=== PATIENT | female | born 1960 | race Caucasian/White ===

== ENCOUNTER 2017-03-08 09:15 | Emergency (ER) | payer OTHER ==
[~2017-03-08] VITALS: Ht 162.6 cm; Wt 106.6 kg
[~2017-03-08 09:15] MED LIST: CLON.1 PO; CLON.5 PO; LISI20 PO; METF500 PO; OMEP20ER PO; TRAZ50 PO
[2017-03-08] MEDS ORDERED: IBUP800 PO (12:04)
[2017-03-08] MEDS ORDERED: Prednisone20 MG PO (12:04)
[2017-03-08] MEDS ORDERED: Percocet 5-3251 EACH PO (12:04)
[2017-03-08] MEDS ORDERED: CYCL10 PO (12:04)
== END 2017-03-08 12:30 | disposition home or self-care (01) ==
LOC: ER 09:15
DX: M54.41 Lumbago with sciatica, right side (principal); I10 Essential (primary) hypertension; R73.03 Prediabetes; Z88.2 Allergy status to sulfonamides; Z88.5 Allergy status to narcotic agent; Z91.018 Allergy to other foods; Z79.899 Other long term (current) drug therapy; Z79.84 Long term (current) use of oral hypoglycemic drugs
CPT/HCPCS: 96372; 99284; J1170; J1885; J3360

== ENCOUNTER → 2018-09-03 | Outpatient (CLI) | payer OTHER ==
[~2018-09-03] MED LIST changes: +ACET500 PO; +CYCL10 PO; +FERSU300 PO; +IBUP400 PO; +IBUP600 PO; +IBUP800 PO; +MAGNESIUM PO; +OMEPRAZOLE20 MG PO; +OXYC10TA19 PO; +PRAM.125 PO; +Percocet 5-3251 EACH PO; +Prednisone20 MG PO
[2018-09-05 15:07] LABS: HPV 16 Negative (Negative); HPV 18 Negative (Negative); HPV OTHER HR TYPES Negative (Negative)
== END | disposition home or self-care (01) ==
LOC: LAB 16:56 → LAB SHORT 16:56
PROVIDERS: Internal Medicine
DX: Z12.4 Encounter for screening for malignant neoplasm of cervix (principal)
CPT/HCPCS: 87624; G0145

== ENCOUNTER 2018-11-13 06:10 | Day surgery (SDC) | payer OTHER ==
[~2018-11-13] VITALS: Ht 162.6 cm; Wt 96.9 kg
[~2018-11-13 06:10] MED LIST changes: -IBUP400 PO; -OXYC10TA19 PO
--- NOTE | 2018-11-13 06:53 | NUR ---
PT ADMITTED TO [facility]. AGREES WITH PLANNED SURGERY. LUNG SOUNDS CLEAR. NOZIN TO NARE BILATERALLY.
--- NOTE | 2018-11-13 11:47 | NUR ---
PATIENT STATES SHE IS BEGINNING TO FEEL LLE, 'BUT IT DOESN'T HURT.' DISCUSSED PAIN MANAGEMENT WITH PATIENT. TAKING PO W/O C/O.
--- NOTE | 2018-11-13 19:10 | NUR ---
PATIENT STATES PAIN CONTROLLED WITH PO PAIN MEDS. CIRC CHECKS TO [facility] WNL. DRESSING D&I. AMBULATED WITH PT TODAY. TOLERATING PO. VOIDING. NO C/O OR CHANGES AT THIS TIME. VISITORS IN TO SEE.
[2018-11-14 05:14] LABS: BASOPHILS ABSOLUTE AUTO 0.02 K/mm3 (0.00-0.23); BASOPHILS PERCENT AUTO 0 % (0-2); EOSINOPHILS ABSOLUTE AUTO 0.01 K/mm3 (0.00-0.68); EOSINOPHILS PERCENT AUTO 0 % (0-6); Hematocrit 29.8 % (33.0-51.0); Hemoglobin 9.8 g/dL (11.5-16.0); IMMATURE GRAN ABSOLUTE AUTO 0.06 K/mm3 (0.00-0.10); IMMATURE GRAN PERCENT AUTO 0 % (0-1); LYMPHOCYTES ABSOLUTE AUTO 1.16 K/mm3 (0.84-5.20); LYMPHOCYTES PERCENT AUTO 8 % (21-46); MONOCYTES ABSOLUTE AUTO 1.12 K/mm3 (0.16-1.47); MONOCYTES PERCENT AUTO 8 % (4-13); Mean Corpuscular HGB 30.1 pg (26.0-34.0); Mean Corpuscular HGB Conc 32.9 g/dL (31.5-36.5); Mean Corpuscular Volume 91 fL (80-100); Mean Platelet Volume 9.6 fL (9.1-12.4); NEUTROPHILS ABSOLUTE AUTO 12.25 K/mm3 (1.96-9.15); NEUTROPHILS PERCENT AUTO 84 % (41-73); Platelet Count 296 K/mm3 (150-400); RDW Standard Deviation 40.2 fL (35.1-46.3); Red Blood Cell Count 3.26 M/mm3 (3.80-5.20); White Blood Cell Count 14.62 K/mm3 (4.00-11.30)
[2018-11-14 05:45] LABS: Anion Gap 7 mmol/L (6-16); Blood Urea Nitrogen 22 mg/dL (8-24); CO2, Blood 25 mmol/L (21-32); Calcium, Blood 8.8 mg/dL (8.5-10.1); Chloride, Blood 101 mmol/L (98-108); Creatinine, Blood 0.88 mg/dL (0.40-1.00); Glomerular Filtration Rate >60 (60-); Glucose, Blood 144 mg/dL (70-99); Potassium, Blood 4.4 mmol/L (3.5-5.5); Sodium, Blood 133 mmol/L (136-145)
--- NOTE | 2018-11-14 06:35 | NUR ---
SHIFT SUMMARY RESTED WELL, PAIN MANAGED WITH PRN AND SCHEDULED MEDS. AMBULATED IN HALLWAY BEFORE BED, TOLERATED WELL. DENIES FURTHER NEDS OR WANTS AT THIS TIME. SAFETY MEASURES IN PLACE. WILL GIVE HAND OFF TO ONCOMING SHIFT USING SBAR.
== END 2018-11-14 14:05 | disposition home or self-care (01) ==
LOC: ORSCMMR 06:10 → ORD 07:30 → ORSCMMR 07:30 → ORD 09:00 → SURS 10:28 → ORSCMMR 11-14 14:05
PROVIDERS: Orthopaedic Surgery
PROC: 0SRD0JA Replacement of Left Knee Joint with Synthetic Substitute, Uncemented, Open Approach (ICD-10-PCS; principal; 2018-11-13 07:30)
DX: M17.12 Unilateral primary osteoarthritis, left knee (principal); I10 Essential (primary) hypertension; E11.9 Type 2 diabetes mellitus without complications; J45.909 Unspecified asthma, uncomplicated; K21.9 Gastro-esophageal reflux disease without esophagitis; E66.01 Morbid (severe) obesity due to excess calories; Z68.36 Body mass index [BMI] 36.0-36.9, adult; Z79.84 Long term (current) use of oral hypoglycemic drugs; Z79.899 Other long term (current) drug therapy
CPT/HCPCS: 36415; 73560-LT; 80048; 82947; 85025; 86850; 86900; 86901; 88300; 97110; 97116; 97162; 97530; C1776; J0171; J0690; J0735; J1100; J1170; J1815; J1885; J2250; J2370; J2405; J2704; J2795; J3010; J7120

== ENCOUNTER 2018-11-22 17:26 | Emergency (ER) | payer OTHER ==
[~2018-11-22] VITALS: Ht 162.6 cm; Wt 96.6 kg
[2018-11-22] MEDS ORDERED: OXYC10TA19 PO (18:00)
[2018-11-22] MEDS ORDERED: IBUP400 PO (18:01)
[2018-11-22 18:02] LABS: Source, Urine Clean Catch
[2018-11-22 18:11] LABS: Appearance, Urine Clear (Clear); Bilirubin, Urine Neg (Neg); Blood, Urine 1+ (Neg); Color, Urine Yellow (P-Yellow); Glucose Qualitative, Urine Neg (Neg); Ketones, Urine Neg (Neg); Leukocyte Esterase, Urine Neg (Neg); Nitrite, Urine Neg (Neg); Protein, Urine Neg (Neg); Urobilinogen, Urine NORM (Normal)
[2018-11-22 18:39] LABS: Bacteria Rare /hpf; Squamous Epithelial Cells Few /hpf (Few); White Blood Cells, Urine 0-2 /hpf (0-5)
[2018-11-22 18:45] LABS: BASOPHILS ABSOLUTE AUTO 0.05 K/mm3 (0.00-0.23); BASOPHILS PERCENT AUTO 1 % (0-2); EOSINOPHILS ABSOLUTE AUTO 0.25 K/mm3 (0.00-0.68); EOSINOPHILS PERCENT AUTO 3 % (0-6); Hematocrit 30.2 % (33.0-51.0); IMMATURE GRAN ABSOLUTE AUTO 0.03 K/mm3 (0.00-0.10); IMMATURE GRAN PERCENT AUTO 0 % (0-1); LYMPHOCYTES ABSOLUTE AUTO 1.71 K/mm3 (0.84-5.20); LYMPHOCYTES PERCENT AUTO 20 % (21-46); MONOCYTES ABSOLUTE AUTO 0.66 K/mm3 (0.16-1.47); MONOCYTES PERCENT AUTO 8 % (4-13); Mean Corpuscular HGB 29.9 pg (26.0-34.0); Mean Corpuscular HGB Conc 33.1 g/dL (31.5-36.5); Mean Corpuscular Volume 90 fL (80-100); Mean Platelet Volume 9.1 fL (9.1-12.4); NEUTROPHILS ABSOLUTE AUTO 6.04 K/mm3 (1.96-9.15); NEUTROPHILS PERCENT AUTO 69 % (41-73); Platelet Count 442 K/mm3 (150-400); RDW Coefficient Variation 12.2 % (11.7-14.2); RDW Standard Deviation 40.3 fL (35.1-46.3); Red Blood Cell Count 3.34 M/mm3 (3.80-5.20); White Blood Cell Count 8.74 K/mm3 (4.00-11.30)
[2018-11-22 19:05] LABS: Alanine Aminotransfer (ALT/SGP 29 U/L (12-78); Albumin/Globulin Ratio 0.8 (0.8-1.8); Alk Phos 80 U/L (50-136); Anion Gap 6 mmol/L (6-16); Aspartate Aminotrans (AST/SGOT 20 U/L (12-37); Bilirubin, Total 0.3 mg/dL (0.1-1.0); Blood Urea Nitrogen 22 mg/dL (8-24); Bun/Creatinine Ratio 28.1 (12.0-20.0); CO2, Blood 27 mmol/L (21-32); Calcium, Blood 9.3 mg/dL (8.5-10.1); Chloride, Blood 97 mmol/L (98-108); Creatinine, Blood 0.78 mg/dL (0.40-1.00); Globulin, Blood 3.8 g/dL (2.2-4.0); Glomerular Filtration Rate >60 (60-); Glucose, Blood 110 mg/dL (70-99); Potassium, Blood 3.8 mmol/L (3.5-5.5); Sodium, Blood 130 mmol/L (136-145); Total Protein, Blood 6.8 g/dL (6.4-8.2)
== END 2018-11-22 21:58 | disposition home or self-care (01) ==
LOC: ER 17:26
PROVIDERS: Emergency Medicine
DX: M96.840 Postprocedural hematoma of a musculoskeletal structure following a musculoskeletal system procedure (principal); G89.18 Other acute postprocedural pain; R50.9 Fever, unspecified; I10 Essential (primary) hypertension; E11.9 Type 2 diabetes mellitus without complications; K21.9 Gastro-esophageal reflux disease without esophagitis; Z96.652 Presence of left artificial knee joint; Z88.2 Allergy status to sulfonamides; Z91.018 Allergy to other foods; Z91.040 Latex allergy status; Z79.899 Other long term (current) drug therapy; Z79.84 Long term (current) use of oral hypoglycemic drugs
CPT/HCPCS: 36415; 80053; 81001; 83605; 84145; 85025; 87040; 99283

== ENCOUNTER 2019-03-11 07:42 | Day surgery (SDC) | payer OTHER ==
[~2019-03-11] VITALS: Ht 162.6 cm; Wt 95.0 kg
[~2019-03-11 07:42] MED LIST changes: +IBUP400 PO; +OXYC10TA19 PO
--- NOTE | 2019-03-11 08:25 | NUR ---
03/11/19 0825 Farideh Garcia CALL LIGHT WITHIN REACH. FAMILY AT BEDSIDE
== END 2019-03-11 12:25 | disposition home or self-care (01) ==
LOC: ORSCSDS 07:42
PROVIDERS: Orthopaedic Surgery
PROC: 0RNJ4ZZ Release Right Shoulder Joint, Percutaneous Endoscopic Approach (ICD-10-PCS; principal; 2019-03-11 09:00)
PROC: 0LQ14ZZ Repair Right Shoulder Tendon, Percutaneous Endoscopic Approach (ICD-10-PCS; principal; 2019-03-11 09:00)
DX: M75.111 Incomplete rotator cuff tear or rupture of right shoulder, not specified as traumatic (principal); I10 Essential (primary) hypertension; E11.9 Type 2 diabetes mellitus without complications; E66.01 Morbid (severe) obesity due to excess calories; Z68.36 Body mass index [BMI] 36.0-36.9, adult; Z79.899 Other long term (current) drug therapy; Z79.84 Long term (current) use of oral hypoglycemic drugs
CPT/HCPCS: 82947; C1713; J0171; J0690; J2250; J2405; J3010; J7120

== ENCOUNTER 2020-04-20 08:40 | Day surgery (SDC) | payer OTHER ==
[~2020-04-20] VITALS: Ht 162.6 cm; Wt 101.3 kg
[2020-04-20] MEDS ORDERED: CYCL10 PO (09:44)
--- NOTE | 2020-04-20 12:24 | NUR ---
04/20/20 1224 DARIN BELLAMY PT TO STEP DOWN VIA BED. VSS ON ROOM AIR, SBA TO RECLINER. TOLERATING PO INTAKE AND DENIES NAUSEA. DRESSING IS C/D/I, ICE PACK TO ELBOW. PT DENIES PAIN AT THIS TIME AND REPORTS HAND IS NUMB. ENGAGED IN DC TEACHING AND ALL QUESTIONS ASKED AND ANSWERED. PT DC WITHOUT SLING.
[2020-05-24] MEDS ORDERED: Mirapex0.25 MG PO (09:18)
[2020-06-15] MEDS ORDERED: Aspir 8181 MG PO (08:15)
[2020-06-15] MEDS ORDERED: Percocet 5-3251 EACH PO (08:15)
== END 2020-04-20 11:00 | disposition home or self-care (01) ==
LOC: ORSCSDS 08:40
PROVIDERS: Orthopaedic Surgery
PROC: 01N54ZZ Release Median Nerve, Percutaneous Endoscopic Approach (ICD-10-PCS; principal; 2020-04-20 10:00)
DX: G56.01 Carpal tunnel syndrome, right upper limb (principal); E11.9 Type 2 diabetes mellitus without complications; I10 Essential (primary) hypertension; K21.9 Gastro-esophageal reflux disease without esophagitis; E66.9 Obesity, unspecified; Z68.38 Body mass index [BMI] 38.0-38.9, adult; Z79.84 Long term (current) use of oral hypoglycemic drugs; Z79.899 Other long term (current) drug therapy
CPT/HCPCS: 82947; J2250; J7120

== ENCOUNTER 2020-05-18 09:29 | Day surgery (SDC) | payer OTHER ==
[~2020-05-18] VITALS: Ht 162.6 cm; Wt 97.0 kg
[2020-05-24] MEDS ORDERED: Mirapex0.25 MG PO (09:18)
[2020-06-15] MEDS ORDERED: Aspir 8181 MG PO (08:15)
[2020-06-15] MEDS ORDERED: Percocet 5-3251 EACH PO (08:15)
== END 2020-05-18 11:01 | disposition home or self-care (01) ==
LOC: ORSCSDS 09:29
PROVIDERS: Orthopaedic Surgery
PROC: 01N54ZZ Release Median Nerve, Percutaneous Endoscopic Approach (ICD-10-PCS; principal; 2020-05-18 10:15)
DX: G56.02 Carpal tunnel syndrome, left upper limb (principal); I10 Essential (primary) hypertension; E11.9 Type 2 diabetes mellitus without complications; K21.9 Gastro-esophageal reflux disease without esophagitis; Z68.36 Body mass index [BMI] 36.0-36.9, adult; E66.9 Obesity, unspecified; Z79.84 Long term (current) use of oral hypoglycemic drugs; Z79.899 Other long term (current) drug therapy
CPT/HCPCS: 82947; J2250; J7120

== ENCOUNTER 2020-06-22 10:08 | Emergency (ER) | payer OTHER ==
[~2020-06-22] VITALS: Ht 162.6 cm; Wt 94.3 kg
[~2020-06-22 10:08] MED LIST changes: +Aspir 8181 MG PO; +Mirapex0.25 MG PO
== END 2020-06-22 11:42 | disposition home or self-care (01) ==
LOC: ER 10:08
DX: M54.17 Radiculopathy, lumbosacral region (principal); I10 Essential (primary) hypertension; E11.9 Type 2 diabetes mellitus without complications; K21.9 Gastro-esophageal reflux disease without esophagitis; Z79.899 Other long term (current) drug therapy
CPT/HCPCS: 36415; 82947; 96374; 96375; 99283-25; J1100; J1885

== ENCOUNTER 2021-02-07 12:02 | Day surgery (SDC) | payer OTHER ==
[~2021-02-07] VITALS: Ht 162.6 cm; Wt 101.1 kg
[2021-02-07] MEDS ORDERED: NEUPRO1 EAC4 TOP (12:41)
[2021-02-07] MEDS ORDERED: OXYC5 PO (12:42)
--- NOTE | 2021-02-07 14:25 | NUR ---
02/07/21 1425 ANTONIO VALDEZ TIME OUT COMPLETED FOR INTRASCALENE NERVE BLOCK. BLOCK COMPLETED BY DR. KELLY AT 1420. PT TOLERATED WELL.
== END 2021-02-07 17:26 | disposition home or self-care (01) ==
LOC: ORSCSDS 12:02
PROVIDERS: Orthopaedic Surgery
PROC: 0LM24ZZ Reattachment of Left Shoulder Tendon, Percutaneous Endoscopic Approach (ICD-10-PCS; principal; 2021-02-07 14:15)
PROC: 0RNK4ZZ Release Left Shoulder Joint, Percutaneous Endoscopic Approach (ICD-10-PCS; principal; 2021-02-07 14:15)
PROC: 0PBB4ZZ Excision of Left Clavicle, Percutaneous Endoscopic Approach (ICD-10-PCS; principal; 2021-02-07 14:15)
DX: M75.122 Complete rotator cuff tear or rupture of left shoulder, not specified as traumatic (principal); M75.22 Bicipital tendinitis, left shoulder; M75.42 Impingement syndrome of left shoulder; M19.012 Primary osteoarthritis, left shoulder; I10 Essential (primary) hypertension; J45.909 Unspecified asthma, uncomplicated; K21.9 Gastro-esophageal reflux disease without esophagitis; R73.03 Prediabetes; E66.01 Morbid (severe) obesity due to excess calories; Z68.38 Body mass index [BMI] 38.0-38.9, adult; Z79.899 Other long term (current) drug therapy; Z79.84 Long term (current) use of oral hypoglycemic drugs
CPT/HCPCS: 82947; C1713; J0171; J0690; J1100; J2250; J2405; J2704; J3010; J7120

== ENCOUNTER 2021-12-08 09:32 | Day surgery (SDC) | payer OTHER ==
[~2021-12-08] VITALS: Ht 162.6 cm; Wt 101.9 kg
[~2021-12-08 09:32] MED LIST changes: +NEUPRO1 EAC4 TOP; +OXYC5 PO
--- NOTE | 2021-12-08 11:55 | NUR ---
12/08/21 1155 Yessy Easton PATIENT INTUBATED ON GURNEY AND MOVED TO OR TABLE IN PRONE POSITION. BILATERAL GEL CHEST BOLSTERS, GEL UNDER KNEES, PILLOW UNDER LOWER LEGS, HEAD POSITONED IN FOAM HEADREST, AXILLAS PADDED, ARMS SECURED ON PADDED ARM BOARDS. POSITION VERIFIED BY SURGEON AND ANESTHESIA.
--- NOTE | 2021-12-08 13:10 | NUR ---
12/08/21 1310 CLINTON UQICK PT WAS PLACED ON O2 @ 10L PER FACE TENT WHEN FIRST OUT OF OR. SHE WAS TITRATED DOWN TO 5 AND NOW IS OFF O2 - CURRENTLY O2 IS 100% ON RA. INFORMATION PROVIDED BY TYSHAWN CASTANEDA. DIRECT CARE TRANSFERRED TO DC. PT STILL HAVING NAUSEA DESPITE ZOFRAN ADMINITERED.
--- NOTE | 2021-12-08 13:37 | NUR ---
12/08/21 1760 CLINTON QUICK PAIN IN RIGHT FOOT- SPASAMING... 25MCG OF FENTANYL WAS GIVEN.
== END 2021-12-08 14:55 | disposition home or self-care (01) ==
LOC: ORSCSDS 09:32
PROVIDERS: Podiatrist Foot & Ankle Surgery
PROC: 0QBN0ZZ Excision of Right Metatarsal, Open Approach (ICD-10-PCS; principal; 2021-12-08 11:00)
PROC: 0LSN0ZZ Reposition Right Lower Leg Tendon, Open Approach (ICD-10-PCS; principal; 2021-12-08 11:00)
DX: M76.61 Achilles tendinitis, right leg (principal); E11.9 Type 2 diabetes mellitus without complications; I10 Essential (primary) hypertension; J45.909 Unspecified asthma, uncomplicated; K21.9 Gastro-esophageal reflux disease without esophagitis; E66.9 Obesity, unspecified; Z68.38 Body mass index [BMI] 38.0-38.9, adult; Z79.84 Long term (current) use of oral hypoglycemic drugs; Z79.899 Other long term (current) drug therapy
CPT/HCPCS: 82947; A9270; C1713; J0690; J1100; J2405; J2704; J2795; J3010; J7120

== ENCOUNTER → 2022-06-21 | Outpatient (CLI) | payer OTHER ==
[2022-06-27 15:12] LABS: HPV 16 Negative (Negative); HPV 18 Negative (Negative); HPV OTHER HR TYPES Negative (Negative)
== END | disposition home or self-care (01) ==
LOC: LAB SHORT 08:33 → LAB 08:33
PROVIDERS: Internal Medicine
DX: Z12.4 Encounter for screening for malignant neoplasm of cervix (principal)
CPT/HCPCS: 87624; G0145

== ENCOUNTER 2022-07-03 08:28 | Day surgery (SDC) | payer OTHER ==
[~2022-07-03] VITALS: Ht 162.6 cm; Wt 100.4 kg
[2022-07-03] MEDS ORDERED: GABA100 (09:14)
[2022-07-03 11:14] VITALS: BP 132/74
--- NOTE | 2022-07-03 11:15 | NUR ---
07/03/22 1115 Yessy Puga IV DC'D CATH INTACT. PRESSURE DRESSING APPLIED, PT TOLERATED WELL
== END 2022-07-03 11:15 | disposition home or self-care (01) ==
LOC: ORSCSDS 08:28
PROVIDERS: Surgery
PROC: 0DJD8ZZ Inspection of Lower Intestinal Tract, Via Natural or Artificial Opening Endoscopic (ICD-10-PCS; principal; 2022-07-03 09:45)
DX: Z12.11 Encounter for screening for malignant neoplasm of colon (principal); K21.9 Gastro-esophageal reflux disease without esophagitis; I10 Essential (primary) hypertension; E11.9 Type 2 diabetes mellitus without complications; D50.9 Iron deficiency anemia, unspecified; E78.5 Hyperlipidemia, unspecified; Z79.84 Long term (current) use of oral hypoglycemic drugs; Z79.899 Other long term (current) drug therapy
CPT/HCPCS: 82947; J2704; J7120